=== PATIENT | female | born 1990 | race Caucasian/White ===

== ENCOUNTER → 2017-01-24 | Outpatient (CLI) | payer OTHER ==
[~2017-01-24] MED LIST: ACYC400T4 PO; CHOL100018 PO; IBUP800T PO; Mirena INTUTE; OXYC-302 PO; PREN1TAB27 PO
== END | disposition home or self-care (01) ==
LOC: CFH 10:31
PROVIDERS: ATTEND Nurse Practitioner
DX: Z80.3 Family history of malignant neoplasm of breast (principal)